=== PATIENT | male | born 1960 | race Two or more races ===

== ENCOUNTER → 2016-11-21 | Day surgery (SDC) | payer BC ==
[~2016-11-21] MED LIST: ADVIL200 M3 PO; NO MEDICATIONS; TRAMADOL HCL50 M1 PO; TRAMADOL HCL50 M2 PO
--- NOTE | ~2016-11-21 | OR ---
Unit #: [id number] #: [id number] Patient: JIMMY BERGERON [id number] [address] [id number] [id number] MR#: [id number] NAME: JIMMY BERGERON ROOM: Date of Procedure: 11/21/2016 Admission Date: 11/21/2016 Surgeon: Keshawn Rivera M.D. : 1960 Attending Physician: Baron Rivera Primary Care Physician: Baldev Valencia M.D. [facility]ENTER OPERATIVE NOTE PROCEDURE PERFORMED Cervical epidural steroid injection under x-ray guided needle placement with provider administered conscious sedation. PREOPERATIVE DIAGNOSES 1. Acute cervical radiculitis. 2. Spinal stenosis, cervical spine. 3. Degenerative joint disease, cervical spine. 4. Degenerative disk disease, cervical spine. 5. Facet arthrosis, cervical spine. INDICATION FOR PROCEDURE The patient presents today with longstanding history of chronic cervical and radicular and cervical facet arthralgia pain. He was managed effectively by Dr. Luis Enrique Barrett with intermittent cervical facet joint injections which he states completely controlled his pain. He does however experience radicular pain, which is generally fairly well managed medically, but he does occasionally experience breakthrough pain which break through his usual ongoing conservative measures which consists of nonsteroidal anti-inflammatory agents. He is currently experiencing just such an exacerbation and presents today requesting an epidural steroid injection. His complaints are compatible with his x-ray films as well as are breaking through his usual and ongoing conservative measures that have been advancing in crescendo pattern for 2 to 4 weeks. After discussing risks and benefits of proceeding today with cervical approach epidural steroid injection with a return date of 03/13, the patient agreed this would be the appropriate course of action. We also discussed him having a discussion with his primary care provider to see if he would benefit from the addition of Flexeril or methocarbamol as a muscle relaxant to his medication regimen as he does occasionally experience muscles spasm in addition to pain as part of his radicular symptom pattern. DESCRIPTION OF PROCEDURE Following these discussions, the patient was taken to the operating room, where he was prepped and draped in a sterile manner. Standard monitors were applied. He was sedated with 2 mg of IV Versed initially and required additional 2 mg of IV Versed throughout the duration of the procedure. Cervical epidural space was accessed at the C6-C7 level using loss of resistance technique and x-ray guidance. Needle placement was confirmed with injection of 2 mL of Omnipaque. There was good superior and inferior flow at this injected level. Following successful needle placement confirmation which required an x-ray time of 6 seconds, the patient received an injectate containing 4 mL of normal saline and 80 mg Unit #: [id number] #: [id number] Patient: JIMMY BERGERON of methylprednisolone. He tolerated this procedure well. He was discharged home with followup instructions, which include return dates as described above. Dictated by... Fran Epstein/mika TD: 11/21/2016 14:28 JOB #: [id number] SUR[facility]ENTER OPERATIVE NOTE Page 1 of 1 X Baron Rivera MD X PROCEDURE OPERATIVE NOTE
== END | disposition home or self-care (01) ==
LOC: CCSC 09:07
DX: G89.29 Other chronic pain (principal); M50.10 Cervical disc disorder with radiculopathy, unspecified cervical region; M47.22 Other spondylosis with radiculopathy, cervical region; M48.02 Spinal stenosis, cervical region; F17.210 Nicotine dependence, cigarettes, uncomplicated; Z88.5 Allergy status to narcotic agent; Z79.899 Other long term (current) drug therapy
CPT/HCPCS: J1040; J2250